=== PATIENT | male | born 1945 | race Caucasian/White ===

== ENCOUNTER 2016-11-20 10:19 | Emergency (ER) | payer MEDICARE ==
[2016-11-20] MEDS ORDERED: HYDROcodone/Acetaminophen 10/325 mg Tablet ONE (10:46)
[2016-11-20] MEDS ORDERED: Naproxen 500 MG TAB ONE (10:46)
--- NOTE | 2016-11-20 11:13 | RAD ---
LEFT HIP TWO VIEWS: History: Left hip pain. FINDINGS: Comparison made with exam of 10-01-12. Changes of total hip arthroplasty are again seen in good position and alignment. There is heterotopi c ossification in the supralateral soft tissues. No acute fracture or dislocation is seen. POS: [facility]
== END 2016-11-20 11:30 | disposition home or self-care (01) ==
LOC: MADERS 10:19
DX: S76.012A Strain of muscle, fascia and tendon of left hip, initial encounter (principal); F17.210 Nicotine dependence, cigarettes, uncomplicated; Z79.899 Other long term (current) drug therapy; X58.XXXA Exposure to other specified factors, initial encounter

== ENCOUNTER 2021-03-24 14:43 | Emergency (ER) | payer MEDICARE ==
[~2021-03-24 14:43] MED LIST: Iopamidol 370 76% 100 ML VIAL ONE; Sodium Chloride 0.9% 100 ML BAG ONE
[2021-03-24 15:27] LABS: #Basophils 0.1 thou/uL (0.0-0.2); #Lymphocytes 0.2 thou/uL (1.20-3.40); #Monocytes 0.7 thou/uL (0.11-0.59); #Neutrophils 10.3 thou/uL (1.40-6.50); %Basophils 0.6 % (0.0-1.0); %Eosinophils 0.3 % (0.0-10.0); %Monocytes 6.3 % (0.0-10.0); %Neutrophils 90.9 % (42.0-75.0); Hemoglobin 8.9 g/dL (14.0-18.0); Mean Corpuscular HGB CONC 30.4 g/dL (32.0-36.0); Mean Corpuscular Hemoglobin 30.8 pg (27.0-31.0); Mean Corpuscular Volume 101.3 fL (78.0-98.0); Mean Platelet Volume 6.7 fL (7.4-10.4); Platelet Count 390 thou/uL (130-400); RBC Distribution Width 17.2 % (11.5-14.5); Red Blood Cell (RBC) Count 2.88 mill/uL (4.70-6.10); White Blood Cell (WBC) Count 11.3 thou/uL (4.8-10.8)
[2021-03-24 15:34] LABS: INR-International Normal Ratio 1.7; Prothrombin Time 19.7 sec (12.0-14.7)
[2021-03-24 15:35] LABS: PTT 34.8 sec (22.9-36.1)
[2021-03-24] MEDS ORDERED: Furosemide 40 MG/4 ML VIAL ONE (15:35)
[2021-03-24 15:45] LABS: ALT (SGPT) 16 U/L (8-55); AST (SGOT) 14 U/L (5-34); Alkaline Phosphatase 108 U/L (40-110); Anion Gap 19 mmol/L (10-20); BUN (Urea Nitrogen) 23 mg/dL (8.4-25.7); Bilirubin, Total 0.6 mg/dL (0.2-1.2); CK (CPK) 34 U/L (30-200); Calc. Creatinine Clearance 0 mL/min (70-130); Calcium 9.7 mg/dL (7.8-10.44); Carbon Dioxide 25 mmol/L (23-31); Chloride 96 mmol/L (98-107); Globulin 4.5 g/dL (2.4-3.5); Glucose 118 mg/dL (83-110); Potassium 3.5 mmol/L (3.5-5.1); Protein, Total 7.5 g/dL (5.8-8.1); Sodium 136 mmol/L (136-145)
[2021-03-24 15:46] LABS: CKMB 0.8 ng/mL (0-6.6)
[2021-03-24] MEDS ORDERED: Digoxin 0.5 MG/2 ML AMP ONE (16:40)
[2021-03-24] MEDS ORDERED: Metoprolol Tartrate 5 MG/5 ML VIAL ONE (19:07)
[2021-03-24] MEDS ORDERED: Meropenem 1 GM VIAL ONE (19:07)
[2021-03-24 21:17] LABS: SARS-CoV-2 NAA Rapid Test Not Detected (NotDetected)
== END 2021-03-24 23:28 | disposition short-term general hospital (02) ==
LOC: MADERS 14:43
DX: J18.9 Pneumonia, unspecified organism (principal); I96 Gangrene, not elsewhere classified; I48.91 Unspecified atrial fibrillation; C34.92 Malignant neoplasm of unspecified part of left bronchus or lung; Z20.822 Contact with and (suspected) exposure to COVID-19; Z87.891 Personal history of nicotine dependence; Z79.01 Long term (current) use of anticoagulants; Z79.899 Other long term (current) drug therapy
CPT/HCPCS: 0240U; 36415; 71045; 71270; 80053; 80162; 82550; 82553; 83880; 84484; 85025; 85610; 85730; 87040; 93005; 94760; 96365; 96375; 96376; J1160; J1940; J2185; J3490; Q9967

== ENCOUNTER 2021-04-01 18:19 | Inpatient (IN) | payer MEDICARE ==
[2021-04-01 19:20] VITALS: BMI 20.7
[2021-04-01] MEDS: Amoxicillin/Potassium Clav 875 MG TAB PO SCH (21:49)
[2021-04-01] MEDS: guaiFENesin ER 600 MG TAB PO SCH (21:49)
[2021-04-01] MEDS: Apixaban 5 MG TAB PO SCH (21:50)
[2021-04-01] MEDS: Magnesium Oxide 400 MG TAB PO SCH (21:50)
[2021-04-02 05:54] LABS: SARS-CoV-2 NAA Rapid Test Not Detected (NotDetected)
[2021-04-02] MEDS ORDERED: ALPRAZolam 0.25 MG TAB PO PRN (07:59)
[2021-04-02] MEDS ORDERED: ALPRAZolam 0.25 MG TAB PO SCH (08:00)
[2021-04-02] MEDS: guaiFENesin ER 600 MG TAB PO SCH ×2 (08:56→21:13)
[2021-04-02] MEDS: Magnesium Oxide 400 MG TAB PO SCH ×2 (08:56→21:13)
[2021-04-02] MEDS: Apixaban 5 MG TAB PO SCH ×2 (08:56→21:13)
[2021-04-02] MEDS: Amoxicillin/Potassium Clav 875 MG TAB PO SCH ×2 (08:56→21:12)
[2021-04-02] MEDS ORDERED: Bisacodyl 5 MG TAB PO SCH (12:15)
[2021-04-02] MEDS ORDERED: Digoxin 0.125 MG TAB PO SCH (17:00)
[2021-04-03 05:56] LABS: #Basophils 0.1 thou/uL (0.0-0.2); #Eosinphils 0.1 thou/uL (0.0-0.7); #Lymphocytes 0.4 thou/uL (1.20-3.40); #Monocytes 0.6 thou/uL (0.11-0.59); #Neutrophils 8.9 thou/uL (1.40-6.50); %Basophils 0.6 % (0.0-1.0); %Eosinophils 0.7 % (0.0-10.0); %Lymphocytes 3.6 % (21.0-51.0); %Monocytes 6.4 % (0.0-10.0); %Neutrophils 88.7 % (42.0-75.0); Hemoglobin 7.4 g/dL (14.0-18.0); Mean Corpuscular HGB CONC 30.1 g/dL (32.0-36.0); Mean Corpuscular Hemoglobin 30.1 pg (27.0-31.0); Mean Corpuscular Volume 100.2 fL (78.0-98.0); Mean Platelet Volume 7.6 fL (7.4-10.4); Platelet Count 266 thou/uL (130-400); RBC Distribution Width 16.9 % (11.5-14.5); Red Blood Cell (RBC) Count 2.47 mill/uL (4.70-6.10)
[2021-04-03 06:03] LABS: Anion Gap 10 mmol/L (10-20); BUN (Urea Nitrogen) 6 mg/dL (8.4-25.7); Calc. Creatinine Clearance 110 mL/min (70-130); Calcium 8.1 mg/dL (7.8-10.44); Carbon Dioxide 32 mmol/L (23-31); Chloride 98 mmol/L (98-107); Glucose 97 mg/dL (83-110); Potassium 3.9 mmol/L (3.5-5.1); Sodium 136 mmol/L (136-145)
[2021-04-03] MEDS ORDERED: Polyethylene Glycol 3350 17 GM Packet PER TUBE SCH (09:00)
[2021-04-03] MEDS: Apixaban 5 MG TAB PO SCH ×2 (09:35→21:08)
[2021-04-03] MEDS: guaiFENesin ER 600 MG TAB PO SCH (09:35)
[2021-04-03] MEDS: Magnesium Oxide 400 MG TAB PO SCH ×2 (09:35→21:08)
[2021-04-03] MEDS: Amoxicillin/Potassium Clav 875 MG TAB PO SCH ×2 (09:36→21:08)
[2021-04-03] MEDS ORDERED: Polyethylene Glycol 3350 17 GM Packet PO SCH (09:45)
[2021-04-03] MEDS: Guaifenesin DM 100-10/5 ML UDCUP PO SCH ×2 (17:44→23:42)
[2021-04-03] MEDS: Digoxin 0.25 MG TAB PO SCH (17:44)
[2021-04-03] MEDS ORDERED: Bisacodyl 5 MG TAB PO PRN (17:46)
[2021-04-04] MEDS: Guaifenesin DM 100-10/5 ML UDCUP PO SCH ×4 (06:01→23:30)
[2021-04-04] MEDS: Amoxicillin/Potassium Clav 875 MG TAB PO SCH ×2 (09:29→21:03)
[2021-04-04] MEDS: Apixaban 5 MG TAB PO SCH ×2 (09:29→21:04)
[2021-04-04] MEDS: Magnesium Oxide 400 MG TAB PO SCH ×2 (09:29→21:04)
[2021-04-04] MEDS: Polyethylene Glycol 3350 17 GM Packet PO SCH (09:30)
[2021-04-04] MEDS ORDERED: Bisacodyl 5 MG TAB PO PRN (12:10)
[2021-04-04] MEDS: Digoxin 0.25 MG TAB PO SCH (17:38)
[2021-04-05] MEDS: Guaifenesin DM 100-10/5 ML UDCUP PO SCH ×3 (05:26→17:56)
[2021-04-05] MEDS: Amoxicillin/Potassium Clav 875 MG TAB PO SCH ×2 (09:33→20:12)
[2021-04-05] MEDS: Magnesium Oxide 400 MG TAB PO SCH ×2 (09:33→20:12)
[2021-04-05] MEDS: Apixaban 5 MG TAB PO SCH ×2 (09:33→20:12)
[2021-04-05] MEDS: Ferrous Sulfate 325 MG TAB PO SCH ×2 (09:33→17:57)
[2021-04-05] MEDS: Polyethylene Glycol 3350 17 GM Packet PO SCH (09:33)
[2021-04-05] MEDS: Digoxin 0.25 MG TAB PO SCH (17:57)
[2021-04-05] MEDS ORDERED: Acetylcysteine 20% 200 MG/ML 30 ML VIAL ONE ×3 (22:08→22:28)
[2021-04-05] MEDS: Acetylcysteine 20% 200 MG/ML 30 ML VIAL INH SCH (22:39)
[2021-04-06] MEDS: Guaifenesin DM 100-10/5 ML UDCUP PO SCH ×4 (01:00→17:25)
[2021-04-06] MEDS: Magnesium Oxide 400 MG TAB PO SCH ×2 (10:00→21:22)
[2021-04-06] MEDS: Apixaban 5 MG TAB PO SCH ×2 (10:00→21:22)
[2021-04-06] MEDS: Acetylcysteine 20% 200 MG/ML 30 ML VIAL INH SCH ×3 (10:00→17:24)
[2021-04-06] MEDS: Amoxicillin/Potassium Clav 875 MG TAB PO SCH ×2 (10:00→21:21)
[2021-04-06] MEDS: Ferrous Sulfate 325 MG TAB PO SCH ×2 (10:00→17:23)
[2021-04-06] MEDS: Polyethylene Glycol 3350 17 GM Packet PO SCH (10:02)
[2021-04-06] MEDS: Digoxin 0.25 MG TAB PO SCH (17:23)
[2021-04-07] MEDS: Guaifenesin DM 100-10/5 ML UDCUP PO SCH ×4 (00:12→17:20)
[2021-04-07] MEDS: Acetylcysteine 20% 200 MG/ML 30 ML VIAL INH SCH ×2 (00:13→06:11)
[2021-04-07 05:43] LABS: Hemoglobin 6.5 g/dL (14.0-18.0); Platelet Count 270 thou/uL (130-400)
[2021-04-07] MEDS ORDERED: Acetaminophen 325 MG TAB PO SCH (07:30)
[2021-04-07] MEDS ORDERED: diphenhydrAMINE 25 MG CAP PO SCH (08:00)
[2021-04-07] MEDS: Ferrous Sulfate 325 MG TAB PO SCH ×2 (09:30→17:01)
[2021-04-07] MEDS: Amoxicillin/Potassium Clav 875 MG TAB PO SCH (09:30)
[2021-04-07] MEDS: Magnesium Oxide 400 MG TAB PO SCH ×2 (09:30→22:37)
[2021-04-07] MEDS: Polyethylene Glycol 3350 17 GM Packet PO SCH (09:30)
[2021-04-07] MEDS ORDERED: Acetylcysteine 10% 100 MG/ML (4ML VIAL) INH SCH (12:00)
[2021-04-07] MEDS ORDERED: Acetylcysteine 20% 200 MG/ML 30 ML VIAL INH SCH ×2 (16:00→21:00)
[2021-04-07] MEDS: Digoxin 0.25 MG TAB PO SCH (17:01)
[2021-04-07] MEDS: Mirtazapine 15 MG TAB PO SCH (22:37)
[2021-04-08] MEDS: Guaifenesin DM 100-10/5 ML UDCUP PO SCH ×5 (00:01→23:25)
[2021-04-08] MEDS: Acetylcysteine 10% 100 MG/ML (4ML VIAL) INH SCH ×5 (00:01→23:25)
[2021-04-08 05:22] LABS: Mean Corpuscular HGB CONC 31.8 g/dL (32.0-36.0); Mean Corpuscular Hemoglobin 29.4 pg (27.0-31.0); Mean Corpuscular Volume 92.3 fL (78.0-98.0); Mean Platelet Volume 7.3 fL (7.4-10.4); Platelet Count 306 thou/uL (130-400); Red Blood Cell (RBC) Count 3.06 mill/uL (4.70-6.10); White Blood Cell (WBC) Count 10.6 thou/uL (4.8-10.8)
[2021-04-08 05:48] LABS: Digoxin 0.99 ng/mL (0.8-2.0)
[2021-04-08] MEDS: Magnesium Oxide 400 MG TAB PO SCH ×2 (09:25→20:28)
[2021-04-08] MEDS: Ferrous Sulfate 325 MG TAB PO SCH ×2 (09:25→17:21)
[2021-04-08] MEDS: Polyethylene Glycol 3350 17 GM Packet PO SCH (09:25)
[2021-04-08 15:51] LABS: Ferritin 1095.21 ng/mL (22-322)
[2021-04-08] MEDS: Digoxin 0.25 MG TAB PO SCH (17:21)
[2021-04-08] MEDS: Mirtazapine 15 MG TAB PO SCH (20:28)
[2021-04-09] MEDS: Acetylcysteine 10% 100 MG/ML (4ML VIAL) INH SCH ×4 (06:07→23:54)
[2021-04-09] MEDS: Guaifenesin DM 100-10/5 ML UDCUP PO SCH ×4 (06:08→23:53)
[2021-04-09] MEDS: Magnesium Oxide 400 MG TAB PO SCH ×2 (08:34→20:18)
[2021-04-09] MEDS: Polyethylene Glycol 3350 17 GM Packet PO SCH (08:34)
[2021-04-09] MEDS: Ferrous Sulfate 325 MG TAB PO SCH ×2 (08:34→17:51)
[2021-04-09] MEDS: Digoxin 0.25 MG TAB PO SCH (17:52)
[2021-04-09] MEDS: Mirtazapine 15 MG TAB PO SCH (20:18)
[2021-04-09 23:29] LABS: Bilirubin Negative (Negative); Blood, Urine Trace (Negative); Clarity Clear (Clear); Glucose, Urine (Dipstick) Negative (Negative); Ketone, Urine Negative (Negative); Leukocyte Negative (Negative); Nitrite Negative (Negative); Protein, Urine (Dipstick) 30 mg/dL (Neg-Trace); pH, Urine 5.5 (5.0-9.0)
[2021-04-09 23:34] LABS: Squamous Epithelial 0-3 HPF (0-3)
[2021-04-10] MEDS: Guaifenesin DM 100-10/5 ML UDCUP PO SCH ×3 (06:18→17:36)
[2021-04-10] MEDS: Acetylcysteine 10% 100 MG/ML (4ML VIAL) INH SCH ×3 (06:20→17:36)
[2021-04-10] MEDS: Ferrous Sulfate 325 MG TAB PO SCH ×3 (09:12→17:37)
[2021-04-10] MEDS ORDERED: Folic Acid 1 MG TAB PO SCH (09:30)
[2021-04-10] MEDS: Magnesium Oxide 400 MG TAB PO SCH ×2 (10:02→20:09)
[2021-04-10] MEDS: Polyethylene Glycol 3350 17 GM Packet PO SCH (10:06)
[2021-04-10] MEDS: Digoxin 0.25 MG TAB PO SCH (17:36)
[2021-04-10 19:15] LABS: SARS-CoV-2 PCR by NAA Not Detected (NotDetected)
[2021-04-10] MEDS: Mirtazapine 15 MG TAB PO SCH (20:09)
[2021-04-11] MEDS: Guaifenesin DM 100-10/5 ML UDCUP PO SCH ×5 (00:21→23:47)
[2021-04-11] MEDS: Acetylcysteine 10% 100 MG/ML (4ML VIAL) INH SCH ×5 (00:22→23:46)
[2021-04-11 08:19] LABS: SARS-CoV-2 PCR by NAA Not Detected (NotDetected)
[2021-04-11] MEDS ORDERED: Folic Acid 1 MG TAB PO SCH (09:00)
[2021-04-11] MEDS: Polyethylene Glycol 3350 17 GM Packet PO SCH (09:21)
[2021-04-11] MEDS: Ferrous Sulfate 325 MG TAB PO SCH ×2 (09:21→17:30)
[2021-04-11] MEDS: Folic Acid 1 MG TAB PO SCH (09:22)
[2021-04-11] MEDS: Magnesium Oxide 400 MG TAB PO SCH ×2 (09:22→20:40)
[2021-04-11] MEDS: Digoxin 0.25 MG TAB PO SCH (17:30)
[2021-04-11] MEDS: Mirtazapine 15 MG TAB PO SCH (20:40)
[2021-04-12] MEDS: Acetylcysteine 10% 100 MG/ML (4ML VIAL) INH SCH ×3 (05:20→17:51)
[2021-04-12] MEDS: Guaifenesin DM 100-10/5 ML UDCUP PO SCH ×3 (05:21→17:51)
[2021-04-12] MEDS: Folic Acid 1 MG TAB PO SCH (08:29)
[2021-04-12] MEDS: Ferrous Sulfate 325 MG TAB PO SCH ×2 (08:29→17:51)
[2021-04-12] MEDS: Magnesium Oxide 400 MG TAB PO SCH ×2 (08:29→21:33)
[2021-04-12] MEDS: Polyethylene Glycol 3350 17 GM Packet PO SCH (08:30)
[2021-04-12] MEDS: Digoxin 0.25 MG TAB PO SCH (17:50)
[2021-04-12] MEDS: Mirtazapine 15 MG TAB PO SCH (21:33)
[2021-04-13] MEDS: Guaifenesin DM 100-10/5 ML UDCUP PO SCH ×5 (00:01→23:42)
[2021-04-13] MEDS: Acetylcysteine 10% 100 MG/ML (4ML VIAL) INH SCH ×5 (00:02→23:42)
[2021-04-13] MEDS: Polyethylene Glycol 3350 17 GM Packet PO SCH (08:45)
[2021-04-13] MEDS: Folic Acid 1 MG TAB PO SCH (08:45)
[2021-04-13] MEDS: Magnesium Oxide 400 MG TAB PO SCH ×2 (08:45→20:21)
[2021-04-13] MEDS: Ferrous Sulfate 325 MG TAB PO SCH ×2 (08:45→17:32)
[2021-04-13] MEDS: Digoxin 0.25 MG TAB PO SCH (17:34)
[2021-04-13] MEDS: Mirtazapine 15 MG TAB PO SCH (20:21)
[2021-04-13] MEDS ORDERED: Sodium Chloride For Inhalation 0.9% 3 ML NEB ONE (23:38)
[2021-04-14] MEDS: Guaifenesin DM 100-10/5 ML UDCUP PO SCH ×4 (05:53→23:09)
[2021-04-14] MEDS: Acetylcysteine 10% 100 MG/ML (4ML VIAL) INH SCH ×4 (05:53→23:09)
[2021-04-14] MEDS: Ferrous Sulfate 325 MG TAB PO SCH ×2 (08:52→17:48)
[2021-04-14] MEDS: Folic Acid 1 MG TAB PO SCH (09:00)
[2021-04-14] MEDS: Polyethylene Glycol 3350 17 GM Packet PO SCH (09:00)
[2021-04-14] MEDS: Magnesium Oxide 400 MG TAB PO SCH ×2 (09:00→20:01)
[2021-04-14] MEDS: Digoxin 0.25 MG TAB PO SCH (17:47)
[2021-04-14] MEDS: Mirtazapine 15 MG TAB PO SCH (20:01)
[2021-04-14] MEDS: Nystatin Cream 15 GM TUBE TOP SCH (20:02)
[2021-04-15] MEDS: Guaifenesin DM 100-10/5 ML UDCUP PO SCH ×4 (05:15→23:37)
[2021-04-15] MEDS: Acetylcysteine 10% 100 MG/ML (4ML VIAL) INH SCH ×4 (05:15→23:37)
[2021-04-15] MEDS: Polyethylene Glycol 3350 17 GM Packet PO SCH (09:32)
[2021-04-15] MEDS: Ferrous Sulfate 325 MG TAB PO SCH ×2 (09:32→18:35)
[2021-04-15] MEDS: Nystatin Cream 15 GM TUBE TOP SCH ×2 (09:32→20:03)
[2021-04-15] MEDS: Magnesium Oxide 400 MG TAB PO SCH ×2 (09:32→20:02)
[2021-04-15] MEDS: Folic Acid 1 MG TAB PO SCH (09:32)
[2021-04-15 18:11] LABS: #Basophils 0.1 thou/uL (0.0-0.2); #Lymphocytes 0.2 thou/uL (1.20-3.40); #Monocytes 0.6 thou/uL (0.11-0.59); #Neutrophils 8.4 thou/uL (1.40-6.50); %Basophils 0.8 % (0.0-1.0); %Eosinophils 0.3 % (0.0-10.0); %Lymphocytes 1.9 % (21.0-51.0); %Monocytes 6.9 % (0.0-10.0); %Neutrophils 90.2 % (42.0-75.0); Hemoglobin 7.9 g/dL (14.0-18.0); Mean Corpuscular HGB CONC 30.4 g/dL (32.0-36.0); Mean Corpuscular Hemoglobin 28.6 pg (27.0-31.0); Mean Platelet Volume 6.4 fL (7.4-10.4); Platelet Count 315 thou/uL (130-400); RBC Distribution Width 16.5 % (11.5-14.5); Red Blood Cell (RBC) Count 2.78 mill/uL (4.70-6.10); White Blood Cell (WBC) Count 9.3 thou/uL (4.8-10.8)
[2021-04-15 18:22] LABS: Anion Gap 11 mmol/L (10-20); BUN (Urea Nitrogen) 12 mg/dL (8.4-25.7); Calc. Creatinine Clearance 87 mL/min (70-130); Calcium 8.8 mg/dL (7.8-10.44); Carbon Dioxide 33 mmol/L (23-31); Chloride 96 mmol/L (98-107); Glucose 99 mg/dL (83-110); Potassium 3.7 mmol/L (3.5-5.1); Sodium 136 mmol/L (136-145)
[2021-04-15] MEDS: Acetaminophen 325 MG TAB PO PRN (18:35)
[2021-04-15] MEDS: Digoxin 0.25 MG TAB PO SCH (18:35)
[2021-04-15] MEDS: Mirtazapine 15 MG TAB PO SCH (20:02)
[2021-04-15] MEDS: Apixaban 5 MG TAB PO SCH (20:02)
[2021-04-16] MEDS: Acetylcysteine 10% 100 MG/ML (4ML VIAL) INH SCH ×3 (05:02→17:07)
[2021-04-16] MEDS: Guaifenesin DM 100-10/5 ML UDCUP PO SCH ×3 (05:02→17:07)
[2021-04-16] MEDS: Magnesium Oxide 400 MG TAB PO SCH ×2 (09:33→20:16)
[2021-04-16] MEDS: Folic Acid 1 MG TAB PO SCH (09:33)
[2021-04-16] MEDS: Ferrous Sulfate 325 MG TAB PO SCH ×2 (09:33→17:07)
[2021-04-16] MEDS: Apixaban 5 MG TAB PO SCH ×2 (09:33→20:15)
[2021-04-16] MEDS: Nystatin Cream 15 GM TUBE TOP SCH ×2 (09:34→20:21)
[2021-04-16] MEDS: Polyethylene Glycol 3350 17 GM Packet PO SCH (09:34)
[2021-04-16] MEDS: HYDROcodone/Acetaminophen 5/325 mg Tablet PO PRN ×2 (12:23→20:17)
[2021-04-16 13:09] LABS: Bilirubin Negative (Negative); Blood, Urine Trace (Negative); Clarity Cloudy (Clear); Glucose, Urine (Dipstick) Negative (Negative); Ketone, Urine Negative (Negative); Leukocyte Small (Negative); Nitrite Negative (Negative); Protein, Urine (Dipstick) 30 mg/dL (Neg-Trace); Specific Gravity, Urine 1.015 (1.005-1.030); pH, Urine 7.5 (5.0-9.0)
[2021-04-16 13:13] LABS: RBC/HPF 0-3 HPF (0-3)
[2021-04-16 13:14] LABS: Squamous Epithelial 0-3 HPF (0-3); WBC/HPF Greater than 50 HPF (0-3); Yeast-Budding 1+ HPF (None Seen); Yeast-Hyphae 3+ HPF (None Seen)
[2021-04-16 13:15] LABS: Urine Culture Reflex Yes Yes
[2021-04-16] MEDS ORDERED: Fluconazole 100 MG TAB PO SCH (15:00)
[2021-04-16] MEDS: Vancomycin HCl 1 GM in Sodium Chloride 0.9% 250 ML 250 ML IVPB SCH (15:23)
[2021-04-16] MEDS: Cefepime 2 GM in Sodium Chloride 0.9% 100 ML IVPB SCH (15:23)
[2021-04-16] MEDS: Digoxin 0.25 MG TAB PO SCH (17:06)
[2021-04-16 17:21] LABS: SARS-CoV-2 PCR by NAA Not Detected (NotDetected)
[2021-04-16] MEDS: Mirtazapine 15 MG TAB PO SCH (20:16)
[2021-04-17] MEDS: Acetylcysteine 10% 100 MG/ML (4ML VIAL) INH SCH ×4 (00:04→17:33)
[2021-04-17] MEDS: Guaifenesin DM 100-10/5 ML UDCUP PO SCH ×4 (00:16→17:33)
[2021-04-17] MEDS: Cefepime 2 GM in Sodium Chloride 0.9% 100 ML IVPB SCH ×2 (02:33→16:11)
[2021-04-17] MEDS: Vancomycin HCl 1 GM in Sodium Chloride 0.9% 250 ML 250 ML IVPB SCH ×2 (03:25→15:01)
[2021-04-17 05:38] LABS: Anion Gap 11 mmol/L (10-20); BUN (Urea Nitrogen) 11 mg/dL (8.4-25.7); Calc. Creatinine Clearance 91 mL/min (70-130); Calcium 8.1 mg/dL (7.8-10.44); Carbon Dioxide 32 mmol/L (23-31); Chloride 95 mmol/L (98-107); Glucose 114 mg/dL (83-110); Potassium 3.9 mmol/L (3.5-5.1); Sodium 134 mmol/L (136-145)
[2021-04-17] MEDS: Ferrous Sulfate 325 MG TAB PO SCH ×2 (07:33→16:11)
[2021-04-17] MEDS: Apixaban 5 MG TAB PO SCH ×2 (08:36→20:45)
[2021-04-17] MEDS: Magnesium Oxide 400 MG TAB PO SCH ×2 (08:36→20:45)
[2021-04-17] MEDS: Fluconazole 100 MG TAB PO SCH (08:37)
[2021-04-17] MEDS: Folic Acid 1 MG TAB PO SCH (08:37)
[2021-04-17] MEDS: Nystatin Cream 15 GM TUBE TOP SCH ×2 (08:37→21:56)
[2021-04-17] MEDS: Polyethylene Glycol 3350 17 GM Packet PO SCH (08:38)
[2021-04-17] MEDS: HYDROcodone/Acetaminophen 5/325 mg Tablet PO PRN ×2 (11:19→17:37)
[2021-04-17] MEDS: Digoxin 0.25 MG TAB PO SCH (16:11)
[2021-04-17] MEDS: Mirtazapine 15 MG TAB PO SCH (20:45)
[2021-04-17] MEDS: Acetaminophen 325 MG TAB PO PRN (20:46)
[2021-04-18] MEDS: Guaifenesin DM 100-10/5 ML UDCUP PO SCH ×4 (00:29→17:19)
[2021-04-18] MEDS: Acetylcysteine 10% 100 MG/ML (4ML VIAL) INH SCH ×4 (00:30→17:19)
[2021-04-18 02:41] LABS: Vancomycin, Trough 9.9 ug/mL
[2021-04-18] MEDS: Vancomycin HCl 750 MG in Sodium Chloride 0.9% 250 ML 250 ML IVPB SCH ×2 (03:31→15:35)
[2021-04-18] MEDS: Vancomycin HCl 500 MG in Sodium Chloride 0.9% 100 ML IVPB SCH ×2 (03:32→15:35)
[2021-04-18] MEDS: Cefepime 2 GM in Sodium Chloride 0.9% 100 ML IVPB SCH ×2 (05:46→17:20)
[2021-04-18] MEDS: HYDROcodone/Acetaminophen 5/325 mg Tablet PO PRN ×2 (05:48→09:15)
[2021-04-18] MEDS: Saccharomyces boulardii 250 MG CAP PO SCH (09:11)
[2021-04-18] MEDS: Fluconazole 100 MG TAB PO SCH (09:11)
[2021-04-18] MEDS: Apixaban 5 MG TAB PO SCH ×2 (09:12→20:53)
[2021-04-18] MEDS: Nystatin Cream 15 GM TUBE TOP SCH ×2 (09:12→20:54)
[2021-04-18] MEDS: Folic Acid 1 MG TAB PO SCH (09:12)
[2021-04-18] MEDS: Polyethylene Glycol 3350 17 GM Packet PO SCH (09:12)
[2021-04-18] MEDS: Ferrous Sulfate 325 MG TAB PO SCH ×2 (09:12→17:19)
[2021-04-18] MEDS: Magnesium Oxide 400 MG TAB PO SCH ×2 (09:12→20:53)
[2021-04-18] MEDS: Digoxin 0.25 MG TAB PO SCH (17:19)
[2021-04-18] MEDS: Mirtazapine 15 MG TAB PO SCH (20:53)
[2021-04-19] MEDS: Guaifenesin DM 100-10/5 ML UDCUP PO SCH ×4 (00:18→17:40)
[2021-04-19] MEDS: Acetylcysteine 10% 100 MG/ML (4ML VIAL) INH SCH ×4 (00:26→17:40)
[2021-04-19] MEDS: Vancomycin HCl 750 MG in Sodium Chloride 0.9% 250 ML 250 ML IVPB SCH ×2 (02:27→16:07)
[2021-04-19] MEDS: Vancomycin HCl 500 MG in Sodium Chloride 0.9% 100 ML IVPB SCH ×2 (02:27→16:07)
[2021-04-19] MEDS: Cefepime 2 GM in Sodium Chloride 0.9% 100 ML IVPB SCH ×2 (05:02→17:40)
[2021-04-19] MEDS: Magnesium Oxide 400 MG TAB PO SCH ×2 (10:06→20:11)
[2021-04-19] MEDS: Ferrous Sulfate 325 MG TAB PO SCH ×2 (10:06→17:40)
[2021-04-19] MEDS: Folic Acid 1 MG TAB PO SCH (10:06)
[2021-04-19] MEDS: Saccharomyces boulardii 250 MG CAP PO SCH (10:06)
[2021-04-19] MEDS: Apixaban 5 MG TAB PO SCH ×2 (10:06→20:11)
[2021-04-19] MEDS: Fluconazole 100 MG TAB PO SCH (10:06)
[2021-04-19] MEDS: Polyethylene Glycol 3350 17 GM Packet PO SCH (10:07)
[2021-04-19] MEDS: Nystatin Cream 15 GM TUBE TOP SCH ×2 (10:07→22:00)
[2021-04-19] MEDS: HYDROcodone/Acetaminophen 5/325 mg Tablet PO PRN ×2 (10:15→20:12)
[2021-04-19] MEDS: Digoxin 0.25 MG TAB PO SCH (17:40)
[2021-04-19] MEDS: Mirtazapine 15 MG TAB PO SCH (20:11)
[2021-04-20] MEDS: Acetylcysteine 10% 100 MG/ML (4ML VIAL) INH SCH ×4 (00:27→17:03)
[2021-04-20] MEDS: Guaifenesin DM 100-10/5 ML UDCUP PO SCH ×4 (00:27→17:03)
[2021-04-20] MEDS: Vancomycin HCl 750 MG in Sodium Chloride 0.9% 250 ML 250 ML IVPB SCH ×2 (02:46→14:05)
[2021-04-20] MEDS: HYDROcodone/Acetaminophen 5/325 mg Tablet PO PRN ×3 (02:46→21:32)
[2021-04-20] MEDS: Vancomycin HCl 500 MG in Sodium Chloride 0.9% 100 ML IVPB SCH ×2 (02:47→14:59)
[2021-04-20] MEDS: Cefepime 2 GM in Sodium Chloride 0.9% 100 ML IVPB SCH ×2 (05:34→16:03)
[2021-04-20] MEDS: Saccharomyces boulardii 250 MG CAP PO SCH (08:03)
[2021-04-20] MEDS: Fluconazole 100 MG TAB PO SCH (08:04)
[2021-04-20] MEDS: Polyethylene Glycol 3350 17 GM Packet PO SCH (08:04)
[2021-04-20] MEDS: Magnesium Oxide 400 MG TAB PO SCH ×2 (08:04→21:18)
[2021-04-20] MEDS: Apixaban 5 MG TAB PO SCH ×2 (08:04→21:18)
[2021-04-20] MEDS: Ferrous Sulfate 325 MG TAB PO SCH ×2 (08:04→16:03)
[2021-04-20] MEDS: Folic Acid 1 MG TAB PO SCH (08:04)
[2021-04-20] MEDS: Nystatin Cream 15 GM TUBE TOP SCH ×2 (08:04→21:35)
[2021-04-20] MEDS: Digoxin 0.25 MG TAB PO SCH (16:03)
[2021-04-20] MEDS: Mirtazapine 15 MG TAB PO SCH (21:18)
[2021-04-21] MEDS: Acetylcysteine 10% 100 MG/ML (4ML VIAL) INH SCH ×2 (00:16→05:36)
[2021-04-21] MEDS: Guaifenesin DM 100-10/5 ML UDCUP PO SCH ×2 (00:16→05:36)
[2021-04-21] MEDS: Vancomycin HCl 500 MG in Sodium Chloride 0.9% 100 ML IVPB SCH (03:40)
[2021-04-21] MEDS: Vancomycin HCl 750 MG in Sodium Chloride 0.9% 250 ML 250 ML IVPB SCH (03:40)
[2021-04-21] MEDS: Cefepime 2 GM in Sodium Chloride 0.9% 100 ML IVPB SCH (05:35)
[2021-04-21 07:23] VITALS: BP 115/67; TEMP 99.5
[2021-04-21] MEDS: Fluconazole 100 MG TAB PO SCH (10:55)
[2021-04-21] MEDS: Apixaban 5 MG TAB PO SCH (10:55)
[2021-04-21] MEDS: Ferrous Sulfate 325 MG TAB PO SCH (10:55)
[2021-04-21] MEDS: Saccharomyces boulardii 250 MG CAP PO SCH (10:56)
[2021-04-21] MEDS: Polyethylene Glycol 3350 17 GM Packet PO SCH (10:56)
[2021-04-21] MEDS: Magnesium Oxide 400 MG TAB PO SCH (10:56)
[2021-04-21] MEDS: Folic Acid 1 MG TAB PO SCH (10:56)
[2021-04-21] MEDS: Nystatin Cream 15 GM TUBE TOP SCH (10:56)
== END 2021-04-21 08:30 | disposition hospice, home (50) | DRG 947 ==
LOC: MADMS 18:19
PROVIDERS: ADMIT Family Medicine; ATTEND Family Medicine
PROC: 30233N1 Transfusion of Nonautologous Red Blood Cells into Peripheral Vein, Percutaneous Approach (ICD-10-PCS; principal; 2021-04-07)
DX: R53.81 Other malaise (principal); L89.153 Pressure ulcer of sacral region, stage 3; J96.01 Acute respiratory failure with hypoxia; J69.0 Pneumonitis due to inhalation of food and vomit; Z66 Do not resuscitate; B37.49 Other urogenital candidiasis; T83.511A Infection and inflammatory reaction due to indwelling urethral catheter, initial encounter; C79.00 Secondary malignant neoplasm of unspecified kidney and renal pelvis; B37.89 Other sites of candidiasis; J91.0 Malignant pleural effusion; R13.10 Dysphagia, unspecified; C32.9 Malignant neoplasm of larynx, unspecified; R26.81 Unsteadiness on feet; F41.9 Anxiety disorder, unspecified; R63.0 Anorexia; I48.0 Paroxysmal atrial fibrillation; K59.01 Slow transit constipation; R33.8 Other retention of urine; D63.0 Anemia in neoplastic disease; Z20.822 Contact with and (suspected) exposure to COVID-19; E53.8 Deficiency of other specified B group vitamins; R19.5 Other fecal abnormalities; Z93.0 Tracheostomy status; Z79.01 Long term (current) use of anticoagulants; Z71.89 Other specified counseling; Z68.20 Body mass index [BMI] 20.0-20.9, adult; Z99.81 Dependence on supplemental oxygen
CPT/HCPCS: 36415; 36430; 71045; 71046; 80048; 80162; 80202; 81001; 82274; 82607; 82728; 82746; 85014; 85018; 85025; 85027; 85049; 86850; 86900; 86901; 87040; 87086; 94640; J0132; J0692; J3370; J3490; J7050; J7620; P9016; Q0163; U0002; U0003; U0005